=== PATIENT | female | born 1945 | race Hispanic/Latino ===

== ENCOUNTER → 2024-12-26 | Day surgery (SDC) | payer MEDICARE ==
[2024-12-23 10:32] LABS: BASOPHILS % 0.8 % (0.0-1.0); EOSINOPHILS % 1.8 % (0.0-6.0); LYMPHOCYTES % 31.6 % (18.0-39.1); MONOCYTES % 10.1 % (4.4-11.3); NEUTROPHILS % 55.5 % (38.7-80.0); RED CELL DISTRIBUTION WIDTH 12.7 % (11.7-14.4)
[~2024-12-26] MED LIST: ACETAMINOPHEN 1000 MG/100 ML 100 ML IV ONE; ACETAMINOPHEN 1000 MG/100 ML IV PRN; ASPIRIN 325 MG TAB PO SCH; ASPIRIN81 MG PO; CELECOXIB 100 MG CAP PO SCH; DEXAMETHASONE SOD PHOS INJ 4 MG/ML SDV ONE; DIPHENHYDRAMINE HCL INJ 50 MG/ML VIAL IV PRN; DOCUSATE SODIUM 100 MG CAP PO PRN; EPHEDRINE SULFATE INJ 50 MG/ML VIAL ONE; FAMOTIDINE 20 MG/2 ML VIAL IV ONE; FENTANYL CITRATE/PF 100MCG/2 ML INJ ONE; GLYCOPYRROLATE INJ 0.2 MG/ML VIAL ONE; HYDROCHLOROTHIA25 MG PO; HYDROCODONE/APAP 5MG-325MG TAB PO PRN; LIDOCAINE HCL 2% LOCAL INJ 5 ML SDV VIAL INJ ONE; LISINOPRIL5 MG PO; ONDANSETRON HCL INJ 2MG/ML 2ML 2 MG/ML VIAL IV PRN; ONDANSETRON HCL INJ 2MG/ML 2ML 2 MG/ML VIAL ONE; PROPOFOL IV EMULSION 10 MG/ML 20 ML VIAL ONE; ROPIVACAINE/EPI/CLONIDINE/KET 50 ML SYRINGE INJ ONE; SODIUM CHLORIDE 0.9% 1000ML 1,000 ML IV SCH; TYLENOL ARTHRITIS PO; VITAMIN D325 MCG PO
[2024-12-26] MEDS: DEXAMETHASONE 10MG/ML PF INJ ONE (11:47)
[2024-12-26] MEDS: GABAPENTIN 300 MG CAP ONE (11:54)
[2024-12-26] MEDS: CELECOXIB 200 MG CAP ONE (11:54)
[2024-12-26] MEDS: LACTATED RINGER'S 1,000 ML ONE (11:55)
[2024-12-26] MEDS: CEFAZOLIN SODIUM 2 GM ONE (11:56)
[2024-12-26 13:23] VITALS: TEMP 97.7
[2024-12-26] MEDS: HYDROCODONE/APAP 7.5MG-325MG 1 EA TAB PO PRN (14:31)
[2024-12-26 16:00] VITALS: BP 128/57; PULSE 63; RESP 16; O2SAT 98
== END | disposition home health service (06) ==
LOC: OR 10:53
PROVIDERS: ATTEND Specialist
DX: M17.11 Unilateral primary osteoarthritis, right knee (principal); M25.761 Osteophyte, right knee; I10 Essential (primary) hypertension; Z01.812 Encounter for preprocedural laboratory examination; Z79.82 Long term (current) use of aspirin; Z79.899 Other long term (current) drug therapy
CPT/HCPCS: 27447; 36415; 73560; 85025; 86850; 86900; 97116; 97161; C1713 ×2; C1776 ×2; J0131; J1100; J1308; J2003; J2405; J2704; J3010; J7121